=== PATIENT | male | born 1965 | race Caucasian/White ===

== ENCOUNTER 2016-08-14 13:07 | Day surgery (SDC) | payer OTHER ==
[~2016-08-14] VITALS: Ht 177.8 cm; Wt 83.7 kg
[~2016-08-14 13:07] MED LIST: CeFAZolin Inj 2 GM in IV Premix 1 EACH IV ONE; Lactated Ringer's 1,000 ML IV SCH
[2016-08-14 13:36] VITALS: BP 151/83; PULSE 77; RESP 16; O2SAT 98
== END 2016-08-14 23:59 | disposition home or self-care (01) ==
LOC: SAS 13:07
PROVIDERS: ATTEND General Practice
DX: K40.20 Bilateral inguinal hernia, without obstruction or gangrene, not specified as recurrent (principal); K42.9 Umbilical hernia without obstruction or gangrene; Z53.8 Procedure and treatment not carried out for other reasons

== ENCOUNTER 2016-08-18 06:26 | Day surgery (SDC) | payer OTHER ==
[~2016-08-18] VITALS: Ht 177.8 cm; Wt 84.4 kg
[2016-08-18] VITALS (9 sets, daily range): BP systolic 125–151; BP diastolic 70–93; PULSE 64–76; RESP 10–18; O2SAT 95–99
[~2016-08-18 06:26] MED LIST changes: +CeFAZolin 2 Gm/50 mL D5W IV Premix IV ONE; -CeFAZolin Inj 2 GM in IV Premix 1 EACH IV ONE; +Lactated Ringer's 1,000 ML IV ONE; -Lactated Ringer's 1,000 ML IV SCH
[2016-08-18] MEDS ORDERED: Ondansetron 2 mg/mL 2 mL Inj ONE (06:27)
[2016-08-18] MEDS ORDERED: fentaNYL-PF 50 mCg/mL 2 mL Inj ONE (06:27)
[2016-08-18] MEDS ORDERED: Propofol 10,000 mCg/mL 20 mL Inj ONE (06:27)
[2016-08-18] MEDS ORDERED: Rocuronium 10 mg/mL 5 mL Inj ONE (06:27)
[2016-08-18] MEDS ORDERED: Dexamethasone 4 mg/mL Inj ONE (06:27)
[2016-08-18] MEDS ORDERED: Glycopyrrolate 0.2 MG/ML 1mL Inj ONE (06:27)
[2016-08-18] MEDS ORDERED: Neostigmine 1 mg/mL 10 mL Inj ONE (06:27)
[2016-08-18] MEDS ORDERED: Succinylcholine Chloride 20 mg/mL 5 mL Inj ONE (06:27)
[2016-08-18] MEDS ORDERED: CeFAZolin Inj 2 gm / 50mL D5W IV ONE (06:40)
[2016-08-18] MEDS ORDERED: Lactated Ringer's 1,000 ML IV SCH (08:44)
[2016-08-18] MEDS ORDERED: Lactated Ringer's 500 ML IV PRN (08:44)
--- NOTE | 2016-08-18 08:44 | PCM.HPANE ---
Patient Data Surgeon Admitting Provider: Attending Provider:Clifford Monroy MD Primary Care Physician:Migel Other Provider:Yaw Woods Anesthesia Reason for Visit Bilateral Inguinal Hernia, Umbilical Hernia Ht/WT & BMI Height (Feet): 5 Height (Inches): 10.00 Weight (Kilograms): 84.370 Body Mass Index 26.00 Allergies Coded Allergies: No Known Allergies (Unverified , 08/14/16) Past Anesthesia History Anesthesia History: Denies:: Abnormal Airway, Anesthesia Reactions, Difficult Intubation, Fam Anesthesia Reaction, Fam Malignant Hypertherm, Malignant Hyperthermia Diabetes History Hx Diabetes?: No MRSA MRSA: No Medications Hypertension Medication: No Home Meds Incl Beta Indra: No No Active Prescriptions or Reported Meds History History of ENT Problems?: Yes HEENT History: Denies:: Abnormal Airway Cataracts Difficult Intubation Dysphagia Glaucoma Hearing Problem Sinus Problem TMJ Denture Type: None Teeth Condition: Missing Teeth Other HEENT Pertinent History: S/P TONSILLECTOMY,WISDOM TEETH EXTRACTIONS Hx of Heart Problems?: No Cardiovascular History: Denies:: AICD Abdominal Aortic Aneurism Atrial Fibrillation Cardiac Surgery Chest Pain Congestive Heart Failure Coronary Artery Disease Edema Heart Murmur Hypertension Irregular Heartbeat Pacemaker Peripheral Vascular Rheumatic Fever Thrombophlebitis Valvular Heart Disease Hx of Respiratory Problem?: No Respiratory History: Denies:: Asthma COPD Chest Surgery Cough Dyspnea Emphysema Hemoptysis Oxygen Administration Pneumonia Pulmonary Embolism Tuberculosis Use of C-PAP Machine Use of Inhalers / NEBS Hx Neurologic Problems?: Yes Neurological History: Denies:: CVA Headaches Multiple Sclerosis Parkinson's Disease Seizures Hx of GI Problems?: No Other GI Pertinent History: B/L INGUINAL HERNIA RPR, UMBILICAL HERNIA=CURRENT PROBLEM Hx of Problems?: No Genitourinary History: Denies:: Kidney Stones Urinary Tract Infection Male Hx: Denies:: Prostate Problems Scrotal Mass Testicular Surgery Skin History: Denies:: History Skin Disorders? Pressure Ulcers Hx Musculoskeletal Problems?: No Musculoskeletal History: Denies:: Back Injury Joint Replacement Musculoskeletal Trauma Hx of Psycho/Social Problems?: No Psycho Social History: Denies:: Anxiety Hx Depression Hx Surgeries?: Yes (tonsil, wisdom teeth) Hx Any Other Health Problems?: Yes Other History: Denies:: Cancer Endocrine Disease Hospitalization Thyroid Disease History Blood Transfusions: Positive for:: Accept Blood Products? Denies:: Blood Transfusions Hx Diabetes: No Hx Alcohol Use: NoHx Substance Use: Yes (marijuana occasional inhaled/edible- once weekly) Smoking Status: Former Smoker Have You Smoked inLast 12 mo: No Stop/Bang S-Snoring: Do You Snore Loudly: No T-Tired: feel tired, fatigued: Yes O-Obsered: Observed not breath: No P-Blood Pressure: treated: No B- Body Mass Index > 35 kg/m2: No A- Age over 50: No N- Neck Large Circumference: No G- Gender Male: Yes KARL Total Score: 2 KARL Risk Assessment: Low Risk, <3 Yes Risk Assessment Category Category 1A: Patient has history of documented sleep apnea, and HAS NOT received any narcotic, sedative or anesthesia administration during this stay. Category 1B: Patient has history of documented sleep apnea, and HAS received any narcotic , sedative or anesthesia administration during this stay Category 2: Patient has SUSPECTED Obstructive Sleep Apnea, and HAS received any narcotic , sedative or anesthesia administration during this stay. Category 3: Patient has SUSPECTED Obstructive Sleep Apnea and HAS NOT received narcotic, sedative or anesthesia administration during this stay. Category 4: Outpatient in Procedural Areas with known sleep apnea or who screen positive for High Risk via the STOP/BANG questionnaire. Exam Exam Vital Signs Vital Signs Date Time Temp Pulse Resp B/P Pulse Ox O2 Delivery O2 Flow Rate FiO2 08/18/16 07:17 36.3 74 18 151/93 98 Room Air General Appearance: Alert, Oriented X3, Cooperative, No Acute Distress HEENT/AIRWAY: MP 3, Other (micrognathic) Lungs: Clear to Auscultation, Normal Air Movement Heart: Exam Unremarkable, Regular Rate/Rhythm, No Murmurs/Rubs/Gallops Meds/Labs/Diagnostics Admission Meds Current Medications Lactated Ringer's (Lr) 1,000 ml @ 120 mls/hr Q8H20M ONCE IV Last administered on 08/18/16t 06:30; Start 08/18/16 at 05:00; Stop 08/18/16 at 13:19 Plan Impression Patient chart reviewed, patient interviewed and anesthestic plan with risks, benefits, and alternatives discussed, and informed consent obtained. NPO per Anesth. Guidelines: Yes ASA Physical Status: ASA1 Normal Healthy Anesthetic Support Modalities: [place] Scope (available) Anesthetic Plan: GA Bene/Risks/Altern/Consents: Yes HP Complete Prior to Induction: Yes Hejalineanek,Ryland R MD August 18, 2016 07:22
[2016-08-18] MEDS ORDERED: EPHEDrine Sulfate 50 mg/mL Inj IVPUSH PRN (08:45)
[2016-08-18] MEDS ORDERED: Phenylephrine 10,000 mCg/mL Inj IVPUSH PRN (08:45)
[2016-08-18] MEDS ORDERED: HYDROmorphone 1 mg/mL Inj IVPUSH PRN (08:45)
[2016-08-18] MEDS ORDERED: MetoCLOpramide 5 mg/mL 2 mL Inj IVPUSH PRN (08:45)
[2016-08-18] MEDS ORDERED: Atropine 0.4 mg/mL Inj IVPUSH PRN (08:45)
[2016-08-18] MEDS ORDERED: Ondansetron 2 mg/mL 2 mL Inj IVPUSH PRN (08:45)
[2016-08-18] MEDS ORDERED: Labetalol 5 mg/mL 4 mL Inj IV PRN (08:45)
[2016-08-18] MEDS ORDERED: Bupivacaine-MPF 0.25%/EPI 30 mL Inj INFILTRATE ONE (09:20)
[2016-08-18] MEDS: fentaNYL-PF 50 mCg/mL 2 mL Inj IVPUSH PRN ×2 (10:58→11:05)
--- NOTE | 2016-08-18 11:14 | PCM.ANEP1 ---
Post Anesthesia PACU Phase 1 Assessment Vital Signs Vital Signs Date Time Temp Pulse Resp B/P Pulse Ox O2 Delivery O2 Flow Rate FiO2 08/18/16 11:05 64 125/78 99 Nasal Cannula 2 08/18/16 11:00 65 125/83 98 Nasal Cannula 2 08/18/16 10:55 66 135/92 97 Nasal Cannula 2 08/18/16 10:53 36.6 65 12 147/84 98 Nasal Cannula 2 08/18/16 07:17 36.3 74 18 151/93 98 Room Air Anesthetic Administered: GA Level of Alertness: Awake, talking IRIZARRY's with Equal Strength: Yes Pain: No Nausea or Vomiting: No CV Function and Hydration: Yes Airway Device: Endotrachial Tube Oxygen Delivery: Nasal Cannula Lungs: Clear to Auscultation, Normal Air Movement PACU Phase 2 Assessment Complications: No Follow up Care: N/A Patient Instructions Provided: N/A Ryland Cheema MD August 18, 2016 11:14
[2016-08-18] MEDS: oxyCODONE-Acetamin 5-325 mg Tablet PO PRN ×2 (11:35→12:45)
--- NOTE | 2016-08-18 19:44 | OP ---
[address] [address] OPERATIVE REPORT PATIENT: NICK BOYD : 1965 MR#: [id number] ADMIT: 08/18/2016 JOB ID: [id number] DATE OF SURGERY: 08/18/2016 ANESTHESIA: General. PREOPERATIVE DIAGNOSIS(ES): 1. Bilateral inguinal hernia repair. 2. Umbilical hernia. POSTOPERATIVE DIAGNOSIS(ES): 1. Bilateral inguinal hernia (bilateral indirect). 2. Umbilical hernia. OPERATION: 1. Laparoscopic repair of bilateral inguinal hernia (TEP approach). 2. Open repair of umbilical hernia. SURGEON: Dr. Clifford Monroy. DIVISION ORDER TECHNICIAN: Edvin Marie PA-C (the surgical assistant certified was required for the safe and timely completion of the case). COMPLICATIONS: None. ESTIMATED BLOOD LOSS: Less than 5 mL. CONDITION: Satisfactory. SPECIMEN: None. FINDINGS: He had small bilateral indirect inguinal hernias. These were both repaired with Bard 3D max sided meshes. He had an approximately 6 mm fascial defect at the umbilicus which was repaired primarily with 0 Prolene. INDICATIONS/SIGNIFICANT HISTORY: The patient is a 51-year-old man who had developed some left inguinal pain as well as a left inguinal lump shortly thereafter. He also noted some pain on the right side that was very similar and was concerned about a possible right inguinal hernia. He was referred to me. I could palpate a hernia on the left but was unsure if there was one on the right. Elected to undergo bilateral laparoscopic repair to allow for evaluation of that right side at the same time. OPERATIVE TECHNIQUE: The patient was taken to the operating room and placed in supine position. General anesthesia was administered. Perioperative antibiotics were given. The abdomen was prepped and draped in standard surgical fashion and a procedural pause performed. I made a small infraumbilical incision and then opened up the anterior rectus sheath just to the left of midline. A 10 mm port was inserted down into the preperitoneal space and insufflation delivered. I then used the 10 mm camera to bluntly dissect the preperitoneal space a little bit. Local anesthetic was injected, followed by two 5 mm ports in the lower midline. I then continued to work, dissecting out the right plane. There was a small indirect hernia. There was a lot of scar tissue and in reducing the peritoneum, a couple of small rents were made. These were both closed with a Vicryl Endo-Loop. Eventually, I got the hernia completely reduced and the peritoneum dissected away from the abdominal wall to allow for mesh placement. I then turned my attention to the left side which was very similar with a small indirect hernia. After getting both sides adequately dissected, I inserted the left-sided Bard 3D Max medium mesh. I positioned it so it had good coverage over the femoral direct and indirect spaces with good medial overlap. The right mesh was then inserted, too. I then released the insufflation and watched the peritoneum billow over the mesh, holding it in place. The scope and ports were then withdrawn. Because there had been a rent in the peritoneum, I elected to open the fascia in the midline to enter the abdomen to release any pneumoperitoneum. I then closed the small hole with 0 PDS as well as my anterior rectus sheath incision with an 0 PDS. I then dissected the umbilical stalk circumferentially and transected this. This showed a small umbilical hernia. The fascia was cleared and then closed with a single horizontal mattress 0 Prolene suture. The umbilicus was then tacked down to the fascia using 3-0 PDS. Skin was closed using 4-0 Monocryl. Dermabond was applied. The entire procedure was well tolerated without complication.
== END 2016-08-18 23:59 | disposition home or self-care (01) ==
LOC: SAS 06:26
PROVIDERS: ATTEND General Practice
DX: K40.20 Bilateral inguinal hernia, without obstruction or gangrene, not specified as recurrent (principal); K42.9 Umbilical hernia without obstruction or gangrene
CPT/HCPCS: 49585; 49650; C1781; J0330; J0690; J1100; J1885; J2250; J2405; J2710; J3010; J7120